=== PATIENT | male | born 1965 | race Caucasian/White ===

== ENCOUNTER 2017-02-19 06:44 | Emergency (ER) | payer OTHER ==
--- NOTE | 2017-02-19 07:24 | EDPHY ---
H & P Stated Complaint: unexplained wt loss over 4-5 months, says loss of 18lbs Time Seen by Provider: 02/19/17 07:09 HPI/ROS: Chief Complaint: Weight loss HPI: 51-year-old male presenting with concerns about weight loss which has been occurring over the last 4-6 months. Patient states that up until several months ago he consistently weight about 192 lb. On December 24 weight himself he is 180 lb. Today he weight himself he noted that he was 174 lb. He woke up possible causes of weight loss on the Internet became very concerned about the possibilities is presenting to the emergency department for evaluation. Has been drinking more Gatorade recently to treat some leg cramping at night but otherwise denies any excess thirst or urination. No palpitations. He has not been having increasing chills or night sweats. No cough. No shortness of breath. No recent travel. No changes in his bowel habits. No dark black bowel movements. No chest pain. No cough shortness of breath. No abdominal pain. No headaches. No vision changes. No nausea or vomiting. Denies any increased stressors in his life. Patient works as a developer. ROS: 10 point Review of Systems is negative except as noted in the HPI. PMH: Gout, GERD Medications: Allopurinol, omeprazole Social History: No smoking, rare alcohol, no recreational drug use Family History: non-contributory Physical Exam: Gen: Awake, Alert, No Distress HEENT: Nose: no rhinorrhea Eyes: PERRLA, EOMI Mouth: Moist mucosa Neck: Supple, no JVD Chest: nontender, lungs clear to auscultation Heart: S1, S2 normal, no murmur Abd: Soft, non-tender, no guarding Back: no CVA tenderness, no midline tenderness Ext: no edema, non-tender Skin: no rash Neuro: CN II-XII intact, Sensation grossly intact, Strength 5/5 in bilateral upper and lower extremities - Medical/Surgical History Hx Asthma: No Hx Chronic Respiratory Disease: No Hx Diabetes: No Hx Cardiac Disease: No Hx Renal Disease: No Hx Cirrhosis: No Hx Alcoholism: No Hx HIV/AIDS: No Hx Splenectomy or Spleen Trauma: No Other PMH: HX: GERD, GOUT, KNEE SURGERY, SHOULDER SURGERY, BACK SURGERY - Social History Smoking Status: Never smoked Constitutional: Initial Vital Signs Temperature (C) 36.4 C 02/19/17 06:48 Heart Rate 75 02/19/17 06:48 Respiratory Rate 16 02/19/17 06:48 Blood Pressure 136/90 H 02/19/17 06:48 O2 Sat (%) 95 02/19/17 06:48 O2 Delivery Mode Room Air Allergies/Adverse Reactions: No Known Allergies Allergy (Verified 02/19/17 06:50) Home Medications: Medication Instructions Recorded Omeprazole 06/26/13 Allopurinol 03/13/16 metFORMIN HCL [Metformin HCl] 500 mg PO BID #60 tablet 02/19/17 Medical Decision Making ED Course/Re-evaluation: Patient is hyperglycemic here consistent with type 2 diabetes. He is not acidotic. He has only 1+ ketones and 3+ glucose in his urine. Again consistent with type 2 diabetes. Will start him on metformin refer him to his primary care doctor for further diabetic education and management. He has been cautioned to discontinue ingestion of simple sugars, particularly in liquid form. - Data Points Laboratory Results: Laboratory Results 02/19/17 07:50 02/19/17 07:50 02/19/17 02/19/17 02/19/17 09:00 07:50 07:50 WBC 4.38 10^3/uL 10^3/uL (3.80-9.50) RBC 5.49 10^6/uL 10^6/uL (4.40-6.38) Hgb 17.5 g/dL g/dL (13.7-17.5) Hct 47.5 % % (40.0-51.0) MCV 86.5 fL fL (81.5-99.8) MCH 31.9 pg pg (27.9-34.1) MCHC 36.8 g/dL H g/dL (32.4-36.7) RDW 12.3 % % (11.5-15.2) Plt Count 148 10^3/uL L 10^3/uL (150-400) MPV 12.4 fL H fL (8.7-11.7) Neut % (Auto) 67.3 % % (39.3-74.2) Lymph % (Auto) 23.1 % % (15.0-45.0) [place] % (Auto) 6.6 % % (4.5-13.0) Eos % (Auto) 1.4 % % (0.6-7.6) Baso % (Auto) 0.9 % % (0.3-1.7) Nucleat RBC Rel Count 0.0 % % (0.0-0.2) Absolute Neuts (auto) 2.95 10^3/uL 10^3/uL (1.70-6.50) Absolute Lymphs (auto) 1.01 10^3/uL 10^3/uL (1.00-3.00) Absolute Monos (auto) 0.29 10^3/uL L 10^3/uL (0.30-0.80) Absolute Eos (auto) 0.06 10^3/uL 10^3/uL (0.03-0.40) Absolute Basos (auto) 0.04 10^3/uL 10^3/uL (0.02-0.10) Absolute Nucleated RBC 0.00 10^3/uL 10^3/uL (0-0.01) Immature Gran % 0.7 % % (0.0-1.1) Immature Gran # 0.03 10^3/uL 10^3/uL (0.00-0.10) Sodium 139 mEq/L mEq/L (134-144) Potassium 4.1 mEq/L mEq/L (3.5-5.2) Chloride 102 mEq/L mEq/L (97-110) Carbon Dioxide 23 mEq/l mEq/l (22-31) Anion Gap 14 mEq/L mEq/L (8-16) BUN 12 mg/dL mg/dL (7-23) Creatinine 0.9 mg/dL mg/dL (0.7-1.3) Estimated GFR > 60 Glucose 329 mg/dL H mg/dL (70-100) Calcium 9.6 mg/dL mg/dL (8.5-10.4) Total Bilirubin 1.3 mg/dL mg/dL (0.1-1.4) AST 27 IU/L IU/L (17-59) ALT 59 IU/L IU/L (21-72) Alkaline Phosphatase 79 IU/L IU/L (38-126) Total Protein 6.5 g/dL g/dL (6.3-8.2) Albumin 4.4 g/dL g/dL (3.5-5.0) Lipase 93 IU/L IU/L (23-300) TSH 2.580 uIU/mL uIU/mL (0.465-4.680) Urine Color YELLOW Urine Appearance CLEAR Urine pH 5.0 (5.0-7.5) Ur Specific Startex 1.032 H (1.002-1.030) Urine Protein NEGATIVE (NEGATIVE) Urine Ketones 1+ H (NEGATIVE) Urine Blood NEGATIVE (NEGATIVE) Urine Nitrate NEGATIVE (NEGATIVE) Urine Bilirubin NEGATIVE (NEGATIVE) Urine Urobilinogen NEGATIVE EU EU (0.2-1.0) Ur Leukocyte Esterase NEGATIVE (NEGATIVE) Urine RBC 1-3 /hpf /hpf (0-3) Urine WBC 1-3 /hpf /hpf (0-3) Ur Epithelial Cells NONE SEEN /lpf /lpf (NONE-1+) Urine Glucose 3+ H (NEGATIVE) Departure - Departure Disposition: Home, Routine, Self-Care Clinical Impression: Type 2 diabetes mellitus Condition: Good Instructions: Type 2 Diabetes in Adults (ED) Additional Instructions: Follow up with your primary care physician in 1-2 days for further evaluation. Return to the emergency department for increasing abdominal pain, nausea, vomiting, fevers, chills, or any other concerns. Referrals: Tarsha Abdi MD [Primary Care Provider] - As per Instructions Prescriptions: metFORMIN HCL [Metformin HCl] 500 mg PO BID #60 tablet
[2017-02-19 07:59] LABS: % IMMATURE GRANULYOCYTES 0.7 % (0.0-1.1); ABSOLUTE IMMATURE GRANULOCYTES 0.03 10^3/uL (0.00-0.10); ADD DIFF? NO; ADD MORPH? NO; ADD SCAN? NO; ATYPICAL LYMPHOCYTE FLAG 0 (0-99); FRAGMENT RBC FLAG 0 (0-99); HEMATOCRIT 47.5 % (40.0-51.0); HEMOGLOBIN 17.5 g/dL (13.7-17.5); LEFT SHIFT FLG 0 (0-99); LIPEMIA HEMOLYSIS FLAG 90 (0-99); MEAN CELL HEMOGLOBIN 31.9 pg (27.9-34.1); MEAN CELL HEMOGLOBIN CONCENTR. 36.8 g/dL (32.4-36.7); MEAN CELL VOLUME 86.5 fL (81.5-99.8); MEAN PLATELET VOLUME 12.4 fL (8.7-11.7); PLATELET CLUMPS FLAG 0 (0-99); PLATELET COUNT 148 10^3/uL (150-400); RED BLOOD CELL COUNT 5.49 10^6/uL (4.40-6.38); RED CELL DISTRIBUTION WIDTH 12.3 % (11.5-15.2)
[2017-02-19 08:10] LABS: ALANINE AMINOTRANSFERASE 59 IU/L (21-72); ALBUMIN 4.4 g/dL (3.5-5.0); ALKALINE PHOSPHATASE 79 IU/L (38-126); ANION GAP 14 mEq/L (8-16); ASPARTATE AMINOTRANSFERASE 27 IU/L (17-59); BILIRUBIN,TOTAL 1.3 mg/dL (0.1-1.4); CALCIUM 9.6 mg/dL (8.5-10.4); CARBON DIOXIDE 23 mEq/l (22-31); CHLORIDE 102 mEq/L (97-110); CREATININE 0.9 mg/dL (0.7-1.3); GLOMERULAR FILTRATION RATE > 60; GLUCOSE 329 mg/dL (70-100); POTASSIUM 4.1 mEq/L (3.5-5.2); SODIUM 139 mEq/L (134-144); TOTAL PROTEIN 6.5 g/dL (6.3-8.2)
[2017-02-19 09:36] LABS: COLOR YELLOW; LEUKOCYTE ESTERASE,URINE NEGATIVE (NEGATIVE); NITRITE,URINE NEGATIVE (NEGATIVE)
[2017-02-19 10:11] VITALS: BP 125/88; PULSE 72; RESP 18; TEMP 97.7; O2SAT 94
== END 2017-02-19 10:11 | disposition home or self-care (01) ==
DX: E11.9 Type 2 diabetes mellitus without complications (principal); Z79.84 Long term (current) use of oral hypoglycemic drugs

== ENCOUNTER → 2018-06-24 | Outpatient (CLI) | payer OTHER | LOC: CIMAGING 15:38 | PROVIDERS: ATTEND Family Medicine | DX: R05 Cough (principal) | CPT/HCPCS: 71046-PO ==